=== PATIENT | female | born 2000 ===

== ENCOUNTER 2024-05-11 15:52 | Emergency (ER) | payer SELFPAY ==
--- NOTE | 2024-06-07 15:44 | US ---
[facility] - Study Notes/Preliminary Report Print Notes"Print Notes Patient: Christy Allen Ordering Physician: Unknown, Unknown ID: [id number] Phone, Pager: Phone: N/A Pager: N/A : 2000 Age/Gender: 23Y, N/A Primary Location: N/A Procedure: US OB <= 14 wk fetus Study Date: 05/11/2024 5:27:00 PM EXAMINATION TYPE: Transabdominal DATE OF EXAM: 05/11/2024 6:40 PM COMPARISON: NONE CLINICAL INDICATION: Unknown, old with history of ; history: abd pain. patient . patient thinks lmp was 03/05/2024 tech impression: uterus appears wnl as best seen mean sac diameter: 3.5cm yolk sac: 0.4cm CRL: 9 week 0 days HR: 160bpm right ovary: Unable to visualize left ovary: 3.3 x 2.0 x 2.9cm. Appears to contain a 1.9 x1.7 x 1.9cm anechoic area. ? corpus luteum. IMPRESSION: 1. Single viable .
== END 2024-05-11 19:40 | disposition left against medical advice (07) ==
LOC: EC 15:52
CPT/HCPCS: 76801; 86850; 86900; 86901; 87086; 99284